=== PATIENT | male | born 1965 | race Two or more races ===

== ENCOUNTER 2017-07-08 07:45 | Inpatient (IN) | payer MEDICAID ==
[~2017-07-08] VITALS: Ht 177.8 cm; Wt 161.1 kg
[2017-07-08] MEDS ORDERED: SODIUM CHLORIDE 0.9% 1,000 ML IV ONE ×3 (09:09→17:00)
[2017-07-08] MEDS ORDERED: KETOROLAC TROMETH 30 MG/ML 1ML VIAL IV ONE (09:15)
[2017-07-08] MEDS ORDERED: LORazepam 2MG/ML-1ML VIAL IV ONE (09:15)
[2017-07-08 12:32] LABS: Hematocrit 43.6 % (41.0-53.0); Hemoglobin 14.4 g/dL (13.5-17.5); Mean Corpuscular Hemoglobin 32.4 pg (28.0-32.0); Mean Corpuscular Hgb Conc. 33.1 g/dL (32.0-36.0); Mean Corpuscular Volume 97.8 fL (80.0-100.0); Platelet Count (auto) 90 10^3/uL (140-450); Red Blood Cells 4.46 10^6/uL (4.5-5.90); Red Cell Distribution Width 17.4 % (11.8-14.3); White Blood Cell 19.2 10^3/uL (4.4-10.8)
[2017-07-08 12:35] LABS: Basophils % (manual) 0 (0.0-2.0); Blast Cells 0; Metamyelocytes % 0; Myelocytes % 0; Promyelocytes % 0; Reactive Lymphocytes 0
[2017-07-08 12:59] LABS: Albumin 1.9 g/dL (3.4-5.0); BUN/Creatinine Ratio 11.8; Calcium 8.4 mg/dL (8.5-10.1); Potassium 3.9 mmol/L (3.5-5.1)
[2017-07-08 13:03] LABS: Bilirubin, Total 1.7 mg/dL (0.2-1.0); Total Protein 5.6 g/dL (6.4-8.2)
[2017-07-08] MEDS ORDERED: NITROGLYCERIN 0.4 MG SL TAB SL PRN (13:45)
[2017-07-08] MEDS ORDERED: DEXTROSE (50%) 50ML SYRG IV ONE ×2 (13:45→17:00)
[2017-07-08] MEDS ORDERED: LACTULOSE 20Gm/30ML SOLN PO PRN (13:45)
[2017-07-08] MEDS ORDERED: DEXTROSE (50%) 50ML SYRG IV PRN (13:45)
[2017-07-08] MEDS ORDERED: MORPHINE SULFATE 4 MG/ML SYR/VIAL IV PRN ×3 (13:45)
[2017-07-08] MEDS ORDERED: LORazepam 2MG/ML-1ML VIAL IV PRN (13:45)
[2017-07-08 13:52] LABS: Band Neutrophils % (manual) 20; Eosinophils % (manual) 2 (0-7); Lymphocytes % (manual) 12 (10.0-50.0); Monocytes % (manual) 5 (0-12)
[2017-07-08] MEDS ORDERED: ENOXAPARIN SOD 40 MG/0.4 ML SYRINGE SC ONE (14:00)
[2017-07-08 14:11] LABS: Amylase 38 U/L (25-115); Lipase 65 U/L (73-393)
[2017-07-08] MEDS ORDERED: cefTRIAXone 1GM/10ml IVPUSH 10 ML IV SCH (14:30)
[2017-07-08 14:40] LABS: INR 1.26 (0.9-1.15); Partial Thromboplastin Time 31.8 sec (22.64-33.71); Prothrombin Time 13.8 sec (9.37-12.3)
[2017-07-08] MEDS: D5W/SOD CHLO 0.9% 1,000 ML IV SCH (14:46)
[2017-07-08] MEDS ORDERED: NOREPINEPHRINE 8 MG/250ML KIT 250 ML IV ONE (15:28)
[2017-07-08] MEDS: NOREPINEPHRINE 8 MG/250ML KIT 250 ML IV SCH (15:47)
[2017-07-08] MEDS: CLINDAMYCIN 600MG IV 50 ML IV SCH (16:00)
[2017-07-08] MEDS ORDERED: ALBUTEROL SULF 2.5 MG/0.5ML(0.5%) NEB SOLN NEB ONE (16:15)
[2017-07-08] MEDS: ACCU-CHEK COMFORT CURVE STRIP VI SCH ×3 (16:35→23:59)
[2017-07-08] MEDS ORDERED: DEXTROSE 50% SYRINGE 50 ML IV ONE (16:38)
[2017-07-08 17:01] LABS: Lactic Acid w/Reflex 4.5 mmol/L (0.4-2.0)
[2017-07-08] MEDS ORDERED: PANTOPRAZOLE 40 MG/10 ML VIAL IV ONE (18:15)
[2017-07-08] MEDS ORDERED: PIPERACILLIN-TAZOB 2.25GM 50 ML IV ONE (18:15)
[2017-07-08] MEDS: LINEZOLID 600MG/300ML 300 ML IV SCH (19:02)
[2017-07-08 20:47] LABS: Alcohol, Urine < 3.0 mg/dL (0-5); Amphetamine Screen, Urine NEGATIVE (NEGATIVE); Barbiturate Scree,Urine NEGATIVE (NEGATIVE); Benzodiazephine Screen, Urine NEGATIVE (NEGATIVE); Cannabinoid Screen, Urine NEGATIVE (NEGATIVE); Cocaine Screen, Urine NEGATIVE (NEGATIVE); Creatinine, Urine 42 mg/dL (30.0-125.0); Opiate Scree,Urine NEGATIVE (NEGATIVE); Phencyclidine Screen, Urine NEGATIVE (NEGATIVE); Sodium Urine 91 mmol/L (40-220)
[2017-07-08 20:49] LABS: Urine Bacteria NONE SEEN /hpf (None Seen); Urine Blood 2+ /uL (Negative); Urine Hyaline Cast FEW /lpf (0 - 2); Urine Specific Gravity 1.007 (1.001-1.035); Urine WBC 4 /hpf (0 - 3)
[2017-07-08 20:51] LABS: Hematocrit 44.2 % (41.0-53.0); Hemoglobin 14.4 g/dL (13.5-17.5)
[2017-07-08] MEDS ORDERED: METHADONE HCL 10 MG TAB PO SCH (22:00)
[2017-07-08] MEDS: PROMETHAZINE HCL 25 MG/ML 1ML IV PRN (22:45)
[2017-07-08] MEDS: METHADONE HCL 10 MG TAB PO SCH (22:55)
[2017-07-09] MEDS: PIPERACILLIN-TAZOB 2.25GM 50 ML IV SCH ×5 (00:38→23:40)
[2017-07-09] MEDS: CLINDAMYCIN 600MG IV 50 ML IV SCH ×2 (00:38→08:26)
[2017-07-09] MEDS: D5W/SOD CHLO 0.9% 1,000 ML IV SCH ×3 (00:42→13:00)
[2017-07-09] MEDS: NOREPINEPHRINE 8 MG/250ML KIT 250 ML IV SCH (03:40)
[2017-07-09] MEDS: ACCU-CHEK COMFORT CURVE STRIP VI SCH ×3 (04:01→11:47)
[2017-07-09 04:11] LABS: Albumin 1.9 g/dL (3.4-5.0); BUN/Creatinine Ratio 16.6; Bilirubin, Total 1.4 mg/dL (0.2-1.0); Calcium 7.3 mg/dL (8.5-10.1); Potassium 4.3 mmol/L (3.5-5.1); Total Protein 5.8 g/dL (6.4-8.2)
[2017-07-09 06:27] LABS: Basophils # (auto) 0 uL; Basophils % (auto) 0.2 % (0.0-2.0); Eosinophils # (auto) 0.2 uL; Eosinophils % (auto) 0.7 % (0.0-7.0); Hematocrit 41.9 % (41.0-53.0); Hemoglobin 13.9 g/dL (13.5-17.5); Lymphocytes # (auto) 2.2 uL; Lymphocytes % (auto) 9.5 % (10.0-50.0); Mean Corpuscular Hemoglobin 32.4 pg (28.0-32.0); Mean Corpuscular Volume 98.2 fL (80.0-100.0); Monocytes # (auto) 1.5 uL; Monocytes % (auto) 6.6 % (0.0-12.0); Neutrophils # (auto) 19.3 uL; Nucleated Red Blood Cells % 0.3 %; Platelet Count (auto) 80 10^3/uL (140-450); Red Blood Cells 4.27 10^6/uL (4.5-5.90); Red Cell Distribution Width 16.9 % (11.8-14.3); White Blood Cell 23.2 10^3/uL (4.4-10.8)
[2017-07-09] MEDS: LINEZOLID 600MG/300ML 300 ML IV SCH (07:01)
[2017-07-09] MEDS ORDERED: ENOXAPARIN SOD 40 MG/0.4 ML SYRINGE SC SCH (10:00)
[2017-07-09] MEDS: LACTULOSE 20Gm/30ML SOLN PO SCH (10:00)
[2017-07-09] MEDS ORDERED: PANTOPRAZOLE 40 MG TAB PO SCH (10:00)
[2017-07-09] MEDS ORDERED: ALBUMIN 25% 100 ML IV ONE (10:15)
[2017-07-09] MEDS: PANTOPRAZOLE 40 MG/10 ML VIAL IV SCH (10:30)
[2017-07-09] MEDS: METHADONE HCL 10 MG TAB PO SCH (10:30)
[2017-07-09] MEDS ORDERED: VANCOMYCIN PER PHARMACY 0 MG IV SCH (14:45)
[2017-07-09] MEDS: SODIUM CHLORIDE 0.9% 1,000 ML IV SCH (15:23)
[2017-07-09] MEDS: VANCOMYCIN 1GM/250ML 250 ML IV SCH (16:17)
[2017-07-10] VITALS (7 sets, daily range): BP systolic 100–139; BP diastolic 42–92
[2017-07-10] MEDS: SODIUM CHLORIDE 0.9% 1,000 ML IV SCH ×2 (01:03→10:45)
[2017-07-10] MEDS: VANCOMYCIN 1GM/250ML 250 ML IV SCH ×2 (04:02→18:01)
[2017-07-10] MEDS ORDERED: METH10T PO (06:27)
[2017-07-10 07:17] LABS: Eosinophils # (auto) 0.2 uL; Lymphocytes # (auto) 1.3 uL
[2017-07-10 07:18] LABS: Basophils # (auto) 0.1 uL; Basophils % (auto) 0.5 % (0.0-2.0); Eosinophils % (auto) 1.7 % (0.0-7.0); Hematocrit 36.7 % (41.0-53.0); Hemoglobin 12.3 g/dL (13.5-17.5); Lymphocytes % (auto) 11.1 % (10.0-50.0); Mean Corpuscular Hemoglobin 32.8 pg (28.0-32.0); Mean Corpuscular Hgb Conc. 33.7 g/dL (32.0-36.0); Mean Corpuscular Volume 97.5 fL (80.0-100.0); Monocytes # (auto) 0.9 uL; Monocytes % (auto) 7.5 % (0.0-12.0); Neutrophils # (auto) 9.2 uL; Neutrophils % (auto) 79.2 % (37.0-80.0); Platelet Count (auto) 57 10^3/uL (140-450); Red Blood Cells 3.76 10^6/uL (4.5-5.90); Red Cell Distribution Width 17.2 % (11.8-14.3); White Blood Cell 11.6 10^3/uL (4.4-10.8)
[2017-07-10] MEDS: PIPERACILLIN-TAZOB 2.25GM 50 ML IV SCH ×4 (07:34→23:56)
[2017-07-10] MEDS: ACETAMINOPHEN 325 MG TAB PO PRN (08:39)
[2017-07-10 08:55] LABS: Albumin 2.1 g/dL (3.4-5.0); BUN/Creatinine Ratio 27.8; Bilirubin, Total 1.1 mg/dL (0.2-1.0); Calcium 7.5 mg/dL (8.5-10.1); Phosphorus 3.2 mg/dL (2.5-4.90); Potassium 4.3 mmol/L (3.5-5.1); Total Protein 5.8 g/dL (6.4-8.2)
[2017-07-10] MEDS: LACTULOSE 20Gm/30ML SOLN PO SCH (10:00)
[2017-07-10] MEDS: PANTOPRAZOLE 40 MG/10 ML VIAL IV SCH (10:05)
[2017-07-10] MEDS: METHADONE HCL 10 MG TAB PO SCH (10:06)
[2017-07-11 03:36] LABS: Eosinophils # (auto) 0.1 uL; Hemoglobin 12.6 g/dL (13.5-17.5); Monocytes # (auto) 0.6 uL; White Blood Cell 6.2 10^3/uL (4.4-10.8)
[2017-07-11 03:38] LABS: Basophils # (auto) 0 uL; Basophils % (auto) 0.4 % (0.0-2.0); Eosinophils % (auto) 1.3 % (0.0-7.0); Hematocrit 37.1 % (41.0-53.0); Lymphocytes % (auto) 15.8 % (10.0-50.0); Mean Corpuscular Hemoglobin 32.8 pg (28.0-32.0); Mean Corpuscular Hgb Conc. 33.9 g/dL (32.0-36.0); Mean Corpuscular Volume 96.7 fL (80.0-100.0); Monocytes % (auto) 9.3 % (0.0-12.0); Neutrophils # (auto) 4.5 uL; Neutrophils % (auto) 73.2 % (37.0-80.0); Platelet Count (auto) 55 10^3/uL (140-450); Red Blood Cells 3.83 10^6/uL (4.5-5.90)
[2017-07-11 04:12] LABS: Albumin 1.9 g/dL (3.4-5.0); BUN/Creatinine Ratio 27.5; Bilirubin, Total 1.2 mg/dL (0.2-1.0); CRP High Sensitivity 8.14 mg/dL (< 0.3); Calcium 7.4 mg/dL (8.5-10.1); Magnesium 1.8 mg/dL (1.6-2.6); Potassium 4.1 mmol/L (3.5-5.1); Total Protein 5.2 g/dL (6.4-8.2)
[2017-07-11] MEDS: VANCOMYCIN 1GM/250ML 250 ML IV SCH ×3 (04:28→22:26)
[2017-07-11] MEDS: PROMETHAZINE HCL 25 MG/ML 1ML IV PRN (04:28)
[2017-07-11 04:30] LABS: % Iron Saturation 36.1 % (20-55)
[2017-07-11 05:00] VITALS: BP 130/92
[2017-07-11] MEDS: PIPERACILLIN-TAZOB 2.25GM 50 ML IV SCH ×2 (05:44→12:12)
[2017-07-11 09:00] VITALS: BP 135/72
[2017-07-11] MEDS: LACTULOSE 20Gm/30ML SOLN PO SCH (09:36)
[2017-07-11] MEDS: PANTOPRAZOLE 40 MG/10 ML VIAL IV SCH (09:36)
[2017-07-11] MEDS: METHADONE HCL 10 MG TAB PO SCH (09:36)
[2017-07-11 11:35] LABS: Ferritin 236.6 ng/mL (10-322); Free T4 (Free Thyroxine) 0.88 ng/dL (0.89-1.76)
[2017-07-11 11:36] LABS: Folate (Folic Acid) 3.41 ng/mL (5.38-24)
[2017-07-11 11:57] LABS: Hepatitis B Surface Antigen Negative (Negative)
[2017-07-11] MEDS ORDERED: VANCOMYCIN 1GM/250ML 250 ML IV SCH (12:00)
[2017-07-11 13:00] VITALS: BP 139/84
[2017-07-11 13:42] LABS: Hepatitis C Antibody Positive (Negative)
[2017-07-11] MEDS ORDERED: cefTRIAXone 1GM/10ml IVPUSH 10 ML IV ONE (16:00)
[2017-07-11 17:00] VITALS: BP 119/71
[2017-07-11 22:00] VITALS: BP 140/64
[2017-07-12] VITALS (9 sets, daily range): BP systolic 112–157; BP diastolic 57–89
[2017-07-12] MEDS: VANCOMYCIN 1GM/250ML 250 ML IV SCH (05:56)
[2017-07-12 07:07] LABS: RPR Non Reactive (Non Reactive)
[2017-07-12 08:07] LABS: Immunoglobulin G, Serum 1532 mg/dL (700-1600)
[2017-07-12] MEDS: PANTOPRAZOLE 40 MG/10 ML VIAL IV SCH (08:23)
[2017-07-12] MEDS: LACTULOSE 20Gm/30ML SOLN PO SCH (08:23)
[2017-07-12] MEDS: METHADONE HCL 10 MG TAB PO SCH (08:23)
[2017-07-12] MEDS: cefTRIAXone 1GM/10ml IVPUSH 10 ML IV SCH (08:24)
[2017-07-12 12:45] LABS: Red Cell Distribution Width 16.9 % (11.8-14.3); White Blood Cell 3.5 10^3/uL (4.4-10.8)
[2017-07-12 12:47] LABS: Hematocrit 38.2 % (41.0-53.0); Hemoglobin 13.1 g/dL (13.5-17.5); Mean Corpuscular Hemoglobin 33.3 pg (28.0-32.0); Mean Corpuscular Hgb Conc. 34.3 g/dL (32.0-36.0); Mean Corpuscular Volume 97.1 fL (80.0-100.0); Platelet Count (auto) 63 10^3/uL (140-450); Red Blood Cells 3.93 10^6/uL (4.5-5.90)
[2017-07-12 12:53] LABS: Band Neutrophils % (manual) 0; Basophils % (manual) 0 (0.0-2.0); Blast Cells 0; Metamyelocytes % 0; Myelocytes % 0; Promyelocytes % 0; Reactive Lymphocytes 0
[2017-07-12 13:09] LABS: Albumin 1.9 g/dL (3.4-5.0); BUN/Creatinine Ratio 17.5; Bilirubin, Total 0.8 mg/dL (0.2-1.0); Calcium 7.8 mg/dL (8.5-10.1)
[2017-07-12] MEDS ORDERED: DOXY100C41 PO (13:09)
[2017-07-12] MEDS ORDERED: CEFD300C2 PO (13:09)
[2017-07-12] MEDS ORDERED: ALBUTEROL SULF 2.5 MG/0.5ML(0.5%) NEB SOLN NEB ONE (13:15)
[2017-07-12] MEDS ORDERED: ALBUTEROL SULF 2.5 MG/0.5ML(0.5%) NEB SOLN NEB PRN (13:15)
[2017-07-12] MEDS ORDERED: ALBUTEROL SULF 2.5 MG/0.5ML(0.5%) NEB SOLN ONE (13:26)
[2017-07-12 14:50] LABS: Lymphocytes % (manual) 15 (10.0-50.0)
[2017-07-12 14:51] LABS: Eosinophils % (manual) 3 (0-7); Monocytes % (manual) 20 (0-12)
[2017-07-12] MEDS: FOLIC ACID 1 MG TAB PO SCH (15:37)
[2017-07-12] MEDS ORDERED: POTASSIUM CHL 10 Meq TABLET PO ONE (19:00)
[2017-07-12] MEDS ORDERED: FUROSEMIDE 20 MG TAB PO ONE (19:00)
[2017-07-12] MEDS: DOXYCYCLINE 100 MG TAB/CAP PO SCH (21:22)
[2017-07-13] VITALS (7 sets, daily range): BP systolic 135–155; BP diastolic 59–87
[2017-07-13 07:41] LABS: Basophils # (auto) 0.1 uL; Basophils % (auto) 1.4 % (0.0-2.0); Eosinophils # (auto) 0.1 uL; Eosinophils % (auto) 2.6 % (0.0-7.0); Hematocrit 39.2 % (41.0-53.0); Hemoglobin 13.4 g/dL (13.5-17.5); Lymphocytes # (auto) 1.5 uL; Lymphocytes % (auto) 32.6 % (10.0-50.0); Mean Corpuscular Hemoglobin 32.8 pg (28.0-32.0); Mean Corpuscular Hgb Conc. 34.1 g/dL (32.0-36.0); Mean Corpuscular Volume 96.2 fL (80.0-100.0); Monocytes # (auto) 0.6 uL; Monocytes % (auto) 13.8 % (0.0-12.0); Neutrophils # (auto) 2.2 uL; Neutrophils % (auto) 49.6 % (37.0-80.0); Nucleated Red Blood Cells % 2.7 %; Platelet Count (auto) 75 10^3/uL (140-450); Red Blood Cells 4.08 10^6/uL (4.5-5.90); Red Cell Distribution Width 16.5 % (11.8-14.3); White Blood Cell 4.5 10^3/uL (4.4-10.8)
[2017-07-13 08:00] LABS: BUN/Creatinine Ratio 14.5; Calcium 8.4 mg/dL (8.5-10.1); Potassium 3.6 mmol/L (3.5-5.1)
[2017-07-13] MEDS: METHADONE HCL 10 MG TAB PO SCH (08:32)
[2017-07-13] MEDS: FUROSEMIDE 20 MG TAB PO SCH (08:34)
[2017-07-13] MEDS: DOXYCYCLINE 100 MG TAB/CAP PO SCH ×2 (08:35→22:08)
[2017-07-13] MEDS: FOLIC ACID 1 MG TAB PO SCH (08:35)
[2017-07-13] MEDS: POTASSIUM CHL 10 Meq TABLET PO SCH (08:35)
[2017-07-13] MEDS: cefTRIAXone 1GM/10ml IVPUSH 10 ML IV SCH (08:36)
[2017-07-13] MEDS: PANTOPRAZOLE 40 MG/10 ML VIAL IV SCH (08:36)
[2017-07-13] MEDS: LACTULOSE 20Gm/30ML SOLN PO SCH (08:36)
[2017-07-14 01:33] VITALS: BP 138/87
[2017-07-14 05:00] VITALS: BP 144/86
[2017-07-14 07:21] LABS: BUN/Creatinine Ratio 17.5; Calcium 7.5 mg/dL (8.5-10.1); Potassium 4.2 mmol/L (3.5-5.1)
[2017-07-14 07:22] LABS: Basophils # (auto) 0 uL; Basophils % (auto) 0.5 % (0.0-2.0); Eosinophils # (auto) 0.1 uL; Eosinophils % (auto) 2.1 % (0.0-7.0); Hemoglobin 12.5 g/dL (13.5-17.5); Lymphocytes # (auto) 1.2 uL; Lymphocytes % (auto) 29.4 % (10.0-50.0); Mean Corpuscular Hemoglobin 33.1 pg (28.0-32.0); Mean Corpuscular Hgb Conc. 34.7 g/dL (32.0-36.0); Mean Corpuscular Volume 95.3 fL (80.0-100.0); Monocytes # (auto) 0.5 uL; Monocytes % (auto) 11.9 % (0.0-12.0); Neutrophils # (auto) 2.3 uL; Neutrophils % (auto) 56.1 % (37.0-80.0); Nucleated Red Blood Cells % 0.1 %; Platelet Count (auto) 67 10^3/uL (140-450); Red Blood Cells 3.78 10^6/uL (4.5-5.90); Red Cell Distribution Width 16.2 % (11.8-14.3)
[2017-07-14] MEDS: PROMETHAZINE HCL 25 MG/ML 1ML IV PRN (08:29)
[2017-07-14] MEDS: ACETAMINOPHEN 325 MG TAB PO PRN (08:29)
[2017-07-14 09:00] VITALS: BP 127/59
[2017-07-14] MEDS: PANTOPRAZOLE 40 MG/10 ML VIAL IV SCH (09:59)
[2017-07-14] MEDS: LACTULOSE 20Gm/30ML SOLN PO SCH (10:00)
[2017-07-14] MEDS: METHADONE HCL 10 MG TAB PO SCH (10:01)
[2017-07-14] MEDS: POTASSIUM CHL 10 Meq TABLET PO SCH (10:01)
[2017-07-14] MEDS: DOXYCYCLINE 100 MG TAB/CAP PO SCH (10:02)
[2017-07-14] MEDS: FOLIC ACID 1 MG TAB PO SCH (10:02)
[2017-07-14] MEDS: FUROSEMIDE 20 MG TAB PO SCH (10:02)
[2017-07-14] MEDS: cefTRIAXone 1GM/10ml IVPUSH 10 ML IV SCH (10:03)
[2017-07-14 13:00] VITALS: BP 140/103
[2017-07-14 17:07] VITALS: BP 137/74
[2017-07-14 18:06] VITALS: BP 137/74
== END 2017-07-14 19:23 | disposition home or self-care (01) | DRG 720 ==
LOC: ER 07:45 → TELE 07:46 → TELE-WESTW 07-10 02:10
PROVIDERS: ADMIT Internal Medicine; ATTEND Internal Medicine Pulmonary Disease
PROC: 02HV33Z Insertion of Infusion Device into Superior Vena Cava, Percutaneous Approach (ICD-10-PCS; principal; 2017-07-08)
DX: A41.9 Sepsis, unspecified organism (principal); N17.0 Acute kidney failure with tubular necrosis; E43 Unspecified severe protein-calorie malnutrition; Z68.43 Body mass index [BMI] 50.0-59.9, adult; D69.6 Thrombocytopenia, unspecified; E66.01 Morbid (severe) obesity due to excess calories; R16.1 Splenomegaly, not elsewhere classified; L03.115 Cellulitis of right lower limb; F11.23 Opioid dependence with withdrawal; R65.20 Severe sepsis without septic shock; N18.9 Chronic kidney disease, unspecified; B19.20 Unspecified viral hepatitis C without hepatic coma; I89.0 Lymphedema, not elsewhere classified; J40 Bronchitis, not specified as acute or chronic; L03.116 Cellulitis of left lower limb; F19.10 Other psychoactive substance abuse, uncomplicated; E16.2 Hypoglycemia, unspecified; Z71.89 Other specified counseling; Z71.3 Dietary counseling and surveillance
CPT/HCPCS: 36415; 36600; 51702; 70450; 71045; 76700; 80048; 80053; 80061; 80202; 80307; 81001; 82140; 82150; 82306; 82550; 82570; 82607; 82728; 82746; 82784; 82805; 82962; 83036; 83520; 83540; 83550; 83605; 83615; 83690; 83735; 83880; 83970; 84100; 84300; 84439; 84443; 84484; 85007; 85014; 85018; 85025; 85027; 85610; 85652; 85730; 86038; 86141; 86160; 86225; 86235; 86256; 86334; 86335; 86592; 86703; 86803; 87040; 87081; 87086; 87340; 93005; 93306; 93971; 94640; 94761; 96365; 96367; 96375; C9113; J1885; J2543; J3490; J7042